=== PATIENT | female | born 1995 | race Caucasian/White ===

== ENCOUNTER 2022-11-11 08:00 | Outpatient (CLI) | payer OTHER ==
[2022-11-11 15:51] LABS: BILIRUBIN,URINE NEGATIVE (NEGATIVE); GLUCOSE, URINE (UA) NEGATIVE (NEGATIVE); KETONES,URINE (UA) NEGATIVE (NEGATIVE); LEUKOCYTE ESTERASE, URINE TRACE (NEGATIVE); NITRITE,URINE NEGATIVE (NEGATIVE); OCCULT BLOOD,URINE SMALL (NEGATIVE); PH,URINE 5.5 PH (5.0-7.5); PROTEIN,URINE NEGATIVE (NEGATIVE); UROBILINOGEN,URINE 0.2 (NORMAL) E.U./dL (NORMAL)
[2022-11-11 16:11] LABS: BACTERIA,URINE Rare /HPF (None Seen); CLARITY,URINE CLEAR (CLEAR); RBC,URINE 0-5 /HPF (0-5); SQUAMOUS EPITHELIAL CELL,UR MOD Squamous (<= Few)
== END 2022-11-11 23:59 | disposition home or self-care (01) ==
LOC: LAB.WC 08:00
PROVIDERS: ATTEND Nurse Practitioner
DX: Z34.00 Encounter for supervision of normal first pregnancy, unspecified trimester (principal)
CPT/HCPCS: 81001; 87086

== ENCOUNTER 2022-12-02 08:00 | Outpatient (CLI) | payer BC, OTHER ==
[2022-12-03 21:12] LABS: CHLAMYDIA TRACHOMATIS DNA NEGATIVE (NEGATIVE); NEISSERIA GONORRHOEAE DNA NEGATIVE (NEGATIVE); TRICHOMONAS VAGINALIS DNA NEGATIVE (NEGATIVE)
== END 2022-12-02 23:59 | disposition home or self-care (01) ==
LOC: LAB.WC 08:00
PROVIDERS: ATTEND Nurse Practitioner
DX: Z11.3 Encounter for screening for infections with a predominantly sexual mode of transmission (principal)
CPT/HCPCS: 87491; 87591; 87661

== ENCOUNTER 2022-12-02 12:45 | Outpatient (CLI) | payer OTHER ==
--- NOTE | 2022-12-02 15:49 | Ultrasound Report ---
PROCEDURE: OB First Trimester INDICATIONS: POSITIVE TEST OUTSIDE/PRIOR DATING DATA: Last menstrual period (LMP): 09/10/2022. LMP-based estimated date of delivery (MAGGIE): 06/27/2023. First dating scan (date and location): 11/24/2022. Estimated date of delivery (MAGGIE) from first dating scan: 06/28/2023. TECHNIQUE: Real-time scanning was performed of the fetus and maternal pelvic organs, with image documentation. COMPARISON: None FINDINGS: Intrauterine gestational sac present. Embryo: [place]-rump length measures 3.45 cm corresponding to a 10 week 2 day gestation. The yolk sac and unfused amnion are visible. Heart rate: 169 bpm. Other: No perigestational fluid collection. Measurement variability in dating: +/- 4 weeks by LMP, +/- 7 days by mean sac diameter (use before 6 weeks gestation if crown-rump length not able to be measured), +/- 5 days by crown-rump length (6-12 weeks gestation). Maternal organs: The uterus is anteverted and anteflexed. The cervix is closed. Ovaries are normal bi laterally. IMPRESSION: 1. Single living intrauterine with a gestational age by crown-rump length of 10 weeks 2 day s and sonographic MAGGIE of 06/28/2023, in good agreement with clinical dates. Reviewed by: Izabella Lees MD on 12/02/2022 3:47 PM PDT Approved by: Izabella Lees MD on 12/02/2022 3:47 PM PDT Station ID: [id number]
== END 2022-12-02 12:46 | disposition home or self-care (01) ==
LOC: DI 12:45
PROVIDERS: ATTEND Nurse Practitioner
DX: Z34.01 Encounter for supervision of normal first pregnancy, first trimester (principal); Z36.89 Encounter for other specified antenatal screening
CPT/HCPCS: 36415; 81001; 85025; 86592; 86762; 86787; 86803; 86850; 86900; 86901; 87086; 87340; 87389

== ENCOUNTER 2022-12-02 13:41 | Outpatient (CLI) | payer OTHER ==
[2022-12-02 14:09] LABS: BASOPHILS # (AUTO) 0.1 10^3/uL (0.0-0.1); BASOPHILS % (AUTO) 0.7 %; EOSINOPHILS # (AUTO) 0.2 10^3/uL (0.0-0.7); EOSINOPHILS % (AUTO) 2.2 %; HCT - HEMATOCRIT 37.2 % (37.0-47.0); LYMPHOCYTES % (AUTO) 20.3 %; MEAN CORPUSCULAR HGB CONC 34.9 g/dL (32.0-36.0); MEAN CORPUSCULAR VOLUME 88.6 fL (81.0-99.0); MEAN PLATELET VOLUME 9.4 fL (7.9-10.8); MONOCYTES # (AUTO) 0.5 10^3/uL (0.0-1.0); MONOCYTES % (AUTO) 5.5 %; NEUTROPHILS # (AUTO) 6.9 10^3/uL (1.5-6.6); NEUTROPHILS % (AUTO) 71.1 %; PLT - PLATELET COUNT 263 10^3/uL (130-450); RED CELL DISTRIBUTION WIDTH 12.1 % (12.0-15.0); WHITE BLOOD COUNT 9.7 x10^3/uL (4.8-10.8)
[2022-12-03 02:07] LABS: HBsAG SCREEN Negative (Negative)
[2022-12-03 04:09] LABS: HCV AB Non Reactive (Non Reactive); HIV SCREEN 4TH GENERATION Non Reactive (Non Reactive)
[2022-12-03 05:12] LABS: RPR Non Reactive (Non Reactive)
[2022-12-03 10:09] LABS: VARICELLA-ZOSTER AB IGG >4000 index (Immune >165)
== END 2022-12-02 13:42 | disposition home or self-care (01) ==
LOC: LAB 13:41
PROVIDERS: ATTEND Nurse Practitioner
DX: Z34.00 Encounter for supervision of normal first pregnancy, unspecified trimester (principal); Z36.89 Encounter for other specified antenatal screening
CPT/HCPCS: 36415; 81001; 85025; 86592; 86762; 86787; 86803; 86850; 86900; 86901; 87086; 87340; 87389

== ENCOUNTER 2023-02-10 08:01 | Outpatient (CLI) | payer BC, OTHER ==
--- NOTE | 2023-02-10 12:47 | Ultrasound Report ---
PROCEDURE: OB Detailed Eval INDICATIONS: SUPERVISION OF OUTSIDE/PRIOR DATING DATA: Last menstrual period (LMP): 09/20/2022. LMP-based estimated date of delivery (MAGGIE): 06/27/2023. First dating scan (date and location): 12/02/2022. Estimated date of delivery (MAGGIE) from first dating scan: 06/28/2023. The below data below was generated using the ultrasound MAGGIE of 06/28/2023 TECHNIQUE: Real-time scanning was performed of the fetus, with image documentation and biometric measurements. Endovaginal scanning: Not performed. COMPARISON: OB ultrasound 12/02/2022. FINDINGS: General: A single living intrauterine gestation is present. Presentation: Variable Placenta: Placental position is anterior, without previa. Amniotic fluid index: 12.8 cm, within normal limits for gestational age. Largest pocket 3.9 cm. heart rate: 162 beats per minute. Maternal cervical canal: 4 cm long; normal length is 2.5 cm or more. biometrics: Biparietal diameter: 4.8 cm, 20 weeks 3 days Head circumference: 17.8 cm, 20 weeks 2 days Abdominal circumference: 15.1 cm, 20 weeks 2 days Femur length: 3.2 cm, 20 weeks 1 day Estimated gestational age from initial scan: 20 weeks 3 days Composite gestational age from present scan: 20 weeks 2 days Estimated weight and percentile: 340 g, 34th percentile Measurement variability in biometric dating: +/- 10 days from 12-20 weeks gestation, +/- 2 weeks from 20-30 weeks gestation, +/- 3 weeks at 30 weeks gestation or later. Anatomic survey: Neuro: Ventricles are normal at less than 10 mm. Cisterna magna is normal at 3-11 mm. Cerebellum i s normal in size and morphology. Nuchal skin fold: Nuchal fold is estimated at 6.3 mm. Normal at less than 6 mm between 14 and 20 wee ks gestational age. Face: Nose and lips, facial profile are normal. Spine: No evidence for spina bifida. Heart: 4-chambered heart is present, with normal ventricular outflow tracts. Diaphragm: Diaphragm is intact. Stomach: Left-sided stomach is present. Kidneys: No hydronephrosis. Normal is less than 5 mm in 2nd trimester, less than 7 mm in 3rd trimester. Cord: 3 vessel cord has orthotopic insertion. Bladder: Normal in size. Extremities: All 4 extremities are visualized. IMPRESSION: 1. Ya living intrauterine at 20 weeks 2 days based on today's ultrasound. This is co ncordant with the first trimester ultrasound. Fetus is in the 34th percentile for weight. 2. Normal placenta and amniotic fluid. 3. Nuchal fold is at the upper limits of normal. Otherwise normal anatomic survey. Reviewed by: Negro Campbell MD on 02/10/2023 12:46 PM PST Approved by: Negro Campbell MD on 02/10/2023 12:46 PM PST Station ID: [id number]
== END 2023-02-10 08:02 | disposition home or self-care (01) ==
LOC: DI 08:01
PROVIDERS: ATTEND Nurse Practitioner
DX: Z34.02 Encounter for supervision of normal first pregnancy, second trimester (principal); Z36.8A Encounter for antenatal screening for other genetic defects

== ENCOUNTER 2023-04-03 08:50 | Outpatient (CLI) | payer BC, OTHER ==
[2023-04-03 10:12] LABS: HCT - HEMATOCRIT 36.7 % (37.0-47.0); HGB - HEMOGLOBIN 12.4 g/dL (12.0-16.0); MEAN CORPUSCULAR HEMOGLOBIN 32.5 pg (27.0-31.0); MEAN CORPUSCULAR HGB CONC 33.8 g/dL (32.0-36.0); MEAN CORPUSCULAR VOLUME 96.1 fL (81.0-99.0); MEAN PLATELET VOLUME 9.2 fL (7.9-10.8); RED BLOOD COUNT 3.82 10^6/uL (4.20-5.40); RED CELL DISTRIBUTION WIDTH 12.7 % (12.0-15.0); WHITE BLOOD COUNT 8.9 x10^3/uL (4.8-10.8)
== END 2023-04-03 08:51 | disposition home or self-care (01) ==
LOC: LAB 08:50
PROVIDERS: ATTEND Nurse Practitioner
DX: Z34.00 Encounter for supervision of normal first pregnancy, unspecified trimester (principal); Z36.8A Encounter for antenatal screening for other genetic defects
CPT/HCPCS: 36415; 82950; 85027; 86850

== ENCOUNTER 2023-05-07 20:12 | Outpatient (CLI) | payer BC, OTHER ==
--- NOTE | 2023-05-08 15:46 | Ultrasound Report ---
PROCEDURE: OB Follow up INDICATIONS: UTERINE SIZE DATE DISCREPENCY OUTSIDE/PRIOR DATING DATA: Last menstrual period (LMP): 09/20/2022. LMP-based estimated date of delivery (MAGGIE): 06/27/2023. First dating scan (date and location): 11/24/2022. Estimated date of delivery (MAGGIE) from first dating scan: 06/28/2023. The below data below was generated using the clinical MAGGIE of 06/27/2023 TECHNIQUE: Real-time scanning was performed of the fetus, with image documentation and biometric measurements. COMPARISON: OB ultrasound 02/10/2023 FINDINGS: General: A single living intrauterine gestation is present. Presentation: Vertex Placenta: Placental position is anterior, without previa. Amniotic fluid index: 15.7 cm, within normal limits for gestational age. heart rate: 132 beats per minute. Maternal cervical canal: 3.7 cm long; normal length is 2.5 cm or more. biometrics: Biparietal diameter: 8.4 cm 34 weeks 0 days to 79th percentile Head circumference: 32.0 cm 36 weeks 1 day 92nd percentile Abdominal circumference: 31.4 cm 35 weeks 2 days 98% Femur length: 6.4 cm 33 weeks 0 days 45th percentile Estimated gestational age from initial scan: 32 weeks 5 days Composite gestational age from present scan: 34 weeks 4 days Estimated weight and percentile: 2473 g 92nd percentile Measurement variability in biometric dating: +/- 10 days from 12-20 weeks gestation, +/- 2 weeks from 20-30 weeks gestation, +/- 3 weeks at 30 weeks gestation or more. Other: Not applicable. IMPRESSION: Single live intrauterine with appropriate interval growth. weight is at the 92nd percentile. Reviewed by: Sheila Radford MD on 05/08/2023 3:45 PM PST Approved by: Sheila Radford MD on 05/08/2023 3:45 PM PST Station ID: [id number]
== END 2023-05-07 20:13 | disposition home or self-care (01) ==
LOC: DI 20:12
PROVIDERS: ATTEND Nurse Practitioner
DX: O26.843 Uterine size-date discrepancy, third trimester (principal); Z3A.34 34 weeks gestation of pregnancy

== ENCOUNTER 2023-05-20 11:47 | Outpatient (CLI) | payer BC, OTHER ==
--- NOTE | 2023-05-20 16:34 | Ultrasound Report ---
PROCEDURE: OB Follow up INDICATIONS: UTERINE SIZE DATE DISCREPENCY OUTSIDE/PRIOR DATING DATA: Last menstrual period (LMP): 09/20/2022. LMP-based estimated date of delivery (MAGGIE): 06/27/2023. First dating scan (date and location): 12/02/2022. Estimated date of delivery (MAGGIE) from first dating scan: 06/28/2023. The below data below was generated using the clinical MAGGIE of 06/27/2023 TECHNIQUE: Real-time scanning was performed of the fetus, with image documentation and biometric measurements. Endovaginal scanning: Not performed. COMPARISON: OB ultrasound 05/07/2023 FINDINGS: General: A single living intrauterine gestation is present. Presentation: Vertex Placenta: Placental position is anterior, without previa. Amniotic fluid index: 18.7 cm, within normal limits for gestational age. heart rate: 164 beats per minute. Maternal cervical canal: 3.9 cm long; normal length is 2.5 cm or more. biometrics: Biparietal diameter: 8.8 cm, 33 weeks 5 days, 81st percentile Head circumference: 33.0 cm, 37 weeks 4 days, 86th percentile Abdominal circumference: 34.0 cm, 37 weeks 6 days, greater than 99th percentile Femur length: 6.8 cm, 34 weeks 6 days, 48th percentile Estimated gestational age from initial scan: 34 weeks 4 days Composite gestational age from present scan: 36 weeks 4 days Estimated weight and percentile: 3053 g, 96th percentile Measurement variability in biometric dating: +/- 10 days from 12-20 weeks gestation, +/- 2 weeks from 20-30 weeks gestation, +/- 3 weeks at 30 weeks gestation or more. Other: Not applicable. IMPRESSION: 1.Single live intrauterine . 2.Estimated weight is at the 96th percentile for gestational age. 3.Amniotic fluid index is within normal limits at 18.7 cm. Reviewed by: Haresh Olivia MD on 05/20/2023 4:32 PM PST Approved by: Haresh Olivia MD on 05/20/2023 4:32 PM PST Station ID: [id number]
== END 2023-05-20 11:48 | disposition home or self-care (01) ==
LOC: DI 11:47
PROVIDERS: ATTEND Nurse Practitioner
DX: O26.843 Uterine size-date discrepancy, third trimester (principal); Z3A.36 36 weeks gestation of pregnancy

== ENCOUNTER 2023-05-23 08:00 | Outpatient (CLI) | payer BC, OTHER ==
[2023-05-23 17:17] LABS: CREATININE,URINE 60.4 mg/dL; PROTEIN/CREATININE RATIO,URINE 0.2 (<=0.2)
== END 2023-05-23 23:59 | disposition home or self-care (01) ==
LOC: LAB.WC 08:00
PROVIDERS: ATTEND Nurse Practitioner
DX: R60.0 Localized edema (principal)
CPT/HCPCS: 82570; 84156

== ENCOUNTER 2023-05-30 08:00 | Outpatient (CLI) | payer BC, OTHER | END 2023-05-30 23:59 | disposition home or self-care (01) | LOC: LAB.WC 08:00 | PROVIDERS: ATTEND Nurse Practitioner | DX: Z36.85 Encounter for antenatal screening for Streptococcus B (principal) | CPT/HCPCS: 87797 ==

== ENCOUNTER 2023-06-19 10:47 | Outpatient (CLI) | payer BC, OTHER ==
--- NOTE | 2023-06-19 16:33 | Ultrasound Report ---
PROCEDURE: OB Follow up INDICATIONS: UTERINE SIZE DATE DISCREPENCY OUTSIDE/PRIOR DATING DATA: Last menstrual period (LMP): 09/20/2022. LMP-based estimated date of delivery (MAGGIE): 06/27/2023. First dating scan (date and location): 12/02/2022. Estimated date of delivery (MAGGIE) from first dating scan: 06/28/2023. The below data below was generated using the clinical MAGGIE of 06/27/2023 TECHNIQUE: Real-time scanning was performed of the fetus, with image documentation and biometric measurements. Endovaginal scanning: Not performed. COMPARISON: 02/10/2023 FINDINGS: General: A single living intrauterine gestation is present. Presentation: Vertex Placenta: Placental position is anterior, without previa. Amniotic fluid index: 20.3 cm, within normal limits for gestational age. Largest pocket measured 6. 2 cm heart rate: 144 beats per minute. Maternal cervical canal: 3.3 cm long; normal length is 2.5 cm or more. biometrics: Biparietal diameter: 9.57 cm, 39 weeks and 1 day (84th percentile) Head circumference: 34.67 cm, 40 weeks and 1 day (68.5th percentile) Abdominal circumference: 37.65 cm, 41 weeks and 4 days (greater than the 99th percentile) Femur length: 7.31 cm, 37 weeks and 3 days (21st percentile) Estimated gestational age from initial scan: 38 weeks and 6 days Composite gestational age from present scan: 39 weeks and 4 days Estimated weight and percentile: 4407.8 g correlating with the 93rd percentile Measurement variability in biometric dating: +/- 10 days from 12-20 weeks gestation, +/- 2 weeks from 20-30 weeks gestation, +/- 3 weeks at 30 weeks gestation or more. Other: Not applicable. IMPRESSION: Single living intrauterine gestation with estimated sonographic gestational age of approximately 39 w eeks and 4 days. Expected interval growth has occurred. Estimated weight of 4407 g which correl ates with the 93rd percentile. Four-quadrant JAMIL measuring 20.3 cm (89th percentile) Reviewed by: Ganga Joe MD on 06/19/2023 3:32 PM BRYCE Approved by: Ganga Joe MD on 06/19/2023 3:32 PM BRYCE Station ID: [id number]
== END 2023-06-19 10:48 | disposition home or self-care (01) ==
LOC: DI 10:47
PROVIDERS: ATTEND Nurse Practitioner
DX: O26.843 Uterine size-date discrepancy, third trimester (principal); Z3A.39 39 weeks gestation of pregnancy

== ENCOUNTER 2023-06-20 08:00 | Outpatient (CLI) | payer BC, OTHER ==
[2023-06-20 13:51] LABS: CREATININE,URINE 44.3 mg/dL; PROTEIN/CREATININE RATIO,URINE 0.2 (<=0.2)
== END 2023-06-20 23:59 | disposition home or self-care (01) ==
LOC: LAB.WC 08:00
PROVIDERS: ATTEND Nurse Practitioner
DX: R03.0 Elevated blood-pressure reading, without diagnosis of hypertension (principal)
CPT/HCPCS: 82570; 84156

== ENCOUNTER 2023-06-23 14:10 | Inpatient (IN) | payer BC, OTHER ==
[2023-06-23] MEDS ORDERED: ONDANSETRON ODT 4 MG TABLET TL PRN (15:57)
[2023-06-23] MEDS ORDERED: miSOPROStoL 200 MCG TABLET BC PRN (15:57)
[2023-06-23] MEDS ORDERED: LABETALOL 20 MG/4 ML SYRINGE IVP PRN ×3 (15:57)
[2023-06-23] MEDS ORDERED: OXYTOCIN/SODIUM CHLORIDE 500 ML IV PRN (15:57)
[2023-06-23] MEDS ORDERED: NIFEdipine 10 MG CAPSULE PO PRN (15:57)
[2023-06-23] MEDS ORDERED: TRANEXAMIC ACID IN NACL 1,000 MG/100 ML BAG IV PRN (15:57)
[2023-06-23] MEDS ORDERED: SODIUM CHLORIDE FLUSH 0.9% 10 ML SYRINGE IVP PRN (15:57)
[2023-06-23] MEDS ORDERED: miSOPROStoL 200 MCG TABLET PR PRN (15:57)
[2023-06-23] MEDS ORDERED: hydrALAZINE INJ 20 MG/ML VIAL IVP PRN ×2 (15:57)
[2023-06-23] MEDS ORDERED: OXYTOCIN 10 UNIT/ML VIAL IM PRN (15:57)
[2023-06-23] MEDS ORDERED: TERBUTALINE 1 MG/ML VIAL SUBQ PRN (15:57)
[2023-06-23] MEDS ORDERED: METHYLERGONOVINE 0.2 MG/ML VIAL IM PRN (15:57)
--- NOTE | 2023-06-23 15:57 | HISTORY & PHYSICAL EXAMINATION ---
Admit History - : 1 Parity: 0 Smoking Status: Never smoker - Mother's Labs Mother's Blood Type: positive: O Mother's RH: positive: Positive GBS: positive: Group B Step Negative Rubella Status: positive: Equivocal - Other Maternal History Other Maternal History: HPI: Patient is a 27-year-old G1, P0 at 39 weeks 3 days gestation presenting for induction of labor at term she has good movement. Denies loss of fluid. No PAUL/BV or RUQP. No vaginal bleeding. Denies nausea and vomiting. Denies urinary urgency or dysuria. All other symptoms reviewed and were negative except per HPI. Course LMP: 09/10/22 MAGGIE by LMP: 06/27/23 11/24/22 /10+2 /C/W dates Final MAGGIE:09/11/2023 FHT: 169 Pre- Weight: 120 BMI: 23.59 Blood type: O+ Antibody: negative CBC: PLT 263 HCT 37.2 HGB 13.0 RUB: equivocal VZV: immune HBsAg: negative HepC: negative RPR/AB-EIA: N-R HIV: N-R PAP: 2021 normal GC/CT: 12/02 negative HSV: denies self/partner Genetic testin12/03/2022 MaterniT- screen Negative Covid: x2/[id number] Flu: given 01/03 RSV: 05/09/2023 FAS WNL EFW 34% 3 VC anterior placenta JAMIL normal 50gm OGCT: 120 3HR GTT: TDAP: 04/11/2023 Breast Pump: 04/11/2023 Antibody screen: 3rd trimester PLT 209; HCT 36.7 HGB 12.4 3rd trimester HIV GBS: Negative EFW: 4407 g, 93rd percentile PMH Depression/anxiety Rubella nonimmune PSH Unremarkable OB History G1, P0 SH Former smoker. No alcohol or drugs. Family History Father: Heart disease Mother: Stroke/CVA, aneurysm Paternal grandmother: Breast cancer Aunt: Breast cancer Allergies No known drug allergies Medications vitamins Sertraline 100 mg daily Physical exam: General: Alert, oriented, no acute distress Head: Normal cephalic atraumatic Eyes: PERRLA, extraocular motions intact. Respiratory: Normal rate of respiration. No accessory muscle use, normal respiratory effort. Cardiovascular: Regular rate and rhythm Abdomen: Gravid, nontender, nondistended Extremities: Normal range of motion Neuro: Oriented x3. Normal movements Psych: Appropriate mood and affect. Normal judgment and insight SVE: 1/40/-3 FHT: 145 bpm baseline, moderate variability, accelerations present, no decelerations [place]: Irregular Assessment and plan 1. Induction of labor -Plan for cervical ripening, will admit if successful. -Misoprostol 25 mcg per vagina every 4 hours -Epidural at patient's request -Anticipate AROM, anticipate 2. 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 4. Rubella nonimmune -Rubella - HPI Current EDU 06/27/23 Gestation 39 Weeks and 3 Days 1 Vital Signs Temperature 97.8 F 06/23/23 14:30 Heart Rate 81 06/23/23 14:30 Respiratory Rate 16 06/23/23 14:30 Blood Pressure 144/78 H 06/23/23 14:30 Temperature 97.8 F 06/23/23 14:30 Heart Rate 81 06/23/23 14:30 Respiratory Rate 16 06/23/23 14:30 Blood Pressure 144/78 H 06/23/23 14:30 O2 Saturation If not protocol: Oxygen Flow, liters/minute Meds/Allgy - Home Medications Home Medications: Ambulatory Orders Medication Instructions Recorded Confirmed Pnv No.95/Ferrous Fum/Folic AC 1 tab ORAL DAILY 06/23/23 06/23/23 [ Tablet] Sertraline HCl [Zoloft] 50 mg PO ONCE 06/23/23 06/23/23 - Allergies Allergies/Adverse Reactions: Allergies Allergy/AdvReac Type Severity Reaction Status Date / Time No Known Drug Allergies Allergy Verified 06/23/23 15:30 Physical - Abdominal Exam Vital Signs: Temp Pulse Resp BP Pulse Ox O2 Flow Rate 97.8 F 81 16 144/78 H 06/23/23 14:30 06/23/23 14:30 06/23/23 14:30 06/23/23 14:30 Plan for Labor - Plan For Labor I expect patient to be DC'd or transferred within 96 hours.: Yes
[2023-06-23] MEDS ORDERED: SODIUM CHLORIDE FLUSH 0.9% 10 ML SYRINGE IVP SCH (16:00)
[2023-06-23] MEDS ORDERED: SERTRALINE 50 MG TABLET PO ONE (16:00)
[2023-06-23] MEDS: miSOPROStoL 100 MCG TABLET VG SCH (16:28)
[2023-06-23 17:20] LABS: BASOPHILS % (AUTO) 0.3 %; EOSINOPHILS # (AUTO) 0.1 10^3/uL (0.0-0.7); EOSINOPHILS % (AUTO) 0.8 %; HCT - HEMATOCRIT 36.2 % (37.0-47.0); LYMPHOCYTES # (AUTO) 1.7 10^3/uL (1.5-3.5); LYMPHOCYTES % (AUTO) 17.4 %; MEAN CORPUSCULAR HEMOGLOBIN 29.8 pg (27.0-31.0); MEAN CORPUSCULAR HGB CONC 33.1 g/dL (32.0-36.0); MEAN CORPUSCULAR VOLUME 89.8 fL (81.0-99.0); MEAN PLATELET VOLUME 10.8 fL (7.9-10.8); MONOCYTES # (AUTO) 0.7 10^3/uL (0.0-1.0); NEUTROPHILS # (AUTO) 7.4 10^3/uL (1.5-6.6); PLT - PLATELET COUNT 223 10^3/uL (130-450); RED BLOOD COUNT 4.03 10^6/uL (4.20-5.40); RED CELL DISTRIBUTION WIDTH 13.6 % (12.0-15.0); WHITE BLOOD COUNT 9.9 x10^3/uL (4.8-10.8)
--- NOTE | 2023-06-23 20:36 | PROVIDER PROGRESS NOTE ---
Labor Progress Note - Uterine Monitoring Uterine Monitoring Mode: positive: External toco Contraction Frequency (min/apart): 2-5 - Monitoring Monitor Mode: positive: External ultrasound Heart Rate Baseline: 145 Heart Rate Variability: positive: Moderate (6-25 bmp) Accelerations: positive: Present, 10x10 (=/32 wks) Decelerations: positive: None Strip Review: positive: Category I - Labor Progress Note Labor Progress Note/Additional Text: Tolerating misoprostol well. Khanh but not strongly. Fetus tolerating well. Patient comfortable. Will check after 3rd dose and reassess.
[2023-06-23] MEDS: valACYclovir 500 MG TABLET PO SCH (21:01)
[2023-06-23] MEDS: SERTRALINE 50 MG TABLET PO ONE (21:01)
[2023-06-24] MEDS ORDERED: NIFEdipine 10 MG CAPSULE PO PRN (03:07)
[2023-06-24] MEDS: OXYTOCIN/SODIUM CHLORIDE 500 ML IV SCH (03:34)
[2023-06-24] MEDS: LACTATED RINGERS 1,000 ML IV SCH (03:35)
--- NOTE | 2023-06-24 07:55 | PROVIDER PROGRESS NOTE ---
Labor Progress Note - Uterine Monitoring Uterine Monitoring Mode: positive: External toco Contraction Frequency (min/apart): 1-3 - Monitoring Monitor Mode: positive: External ultrasound Heart Rate Baseline: 135 Heart Rate Variability: positive: Moderate (6-25 bmp) Accelerations: positive: Present, 15x15 Decelerations: positive: None Strip Review: positive: Category I - Vaginal Exam Dilation (in cm): 3 Effacement (%): 50 Station: -3 - Labor Progress Note Labor Progress Note/Additional Text: Patient was very sensitive to misoprostol and we were unable to administer more than one dose due to frequency of uterine contractions. Held overnight dose and gave fluid bolus. Eventually spaced out. Was /-3 so started oxytocin. Remains unchanged at this time, but head is not well engaged. Will continue oxytocin at this time.
--- NOTE | 2023-06-24 09:04 | PHARMACY PROGRESS NOTE ---
- Best Possible Medication History Admit Date and Time: 06/23/23 1557 Processed by: Nursing Medications reviewed in ED?: No Medication History completed: Yes Patient Interview: Completed Secondary Source(s): Insurance records As the person ultimately responsible for medication therapy, providers are able to order a medication from an existing home medication list in [facility] via the "Reconcile Routine" prior to Confirmation of that medication by integrated logistics support manager. Such practice is discouraged except when the physician, in their clinical judgment, deems that a medical need exists for a medication without regard to previous use.
[2023-06-24] MEDS: fentaNYL 100 MCG/2 ML VIAL IVP PRN (14:21)
[2023-06-24] MEDS ORDERED: LACTATED RINGERS 500 ML IV ONE (15:38)
[2023-06-24] MEDS ORDERED: NALOXONE 0.4 MG/ML VIAL IVP PRN (15:38)
[2023-06-24] MEDS ORDERED: diphenhydrAMINE INJ 50 MG/ML VIAL IVP PRN (15:38)
[2023-06-24] MEDS ORDERED: NALBUPHINE 10 MG/ML AMP IVP PRN (15:38)
[2023-06-24] MEDS ORDERED: ePHEDrine 50 MG/ML VIAL IVP PRN (15:38)
[2023-06-24] MEDS ORDERED: METOCLOPRAMIDE 10 MG/2 ML VIAL IVP PRN (15:38)
[2023-06-24] MEDS ORDERED: ONDANSETRON 4 MG/2 ML VIAL IVP PRN (15:38)
--- NOTE | 2023-06-24 15:38 | ANESTHESIA ---
Pre-Anesthesia VS, & Labs - Diagnosis term labor, IUP, labor pain - Procedure epidural for Vital Signs: Temp Pulse Resp BP Pulse Ox O2 Flow Rate 36.6 C 81 16 144/78 H 06/23/23 14:30 06/23/23 14:30 06/23/23 14:30 06/23/23 14:30 Height: 5 ft 1 in Weight (kg): 74.389 kg Body Mass Index: 30.9 BMI Classification: Obese - NPO Last Fluid Intake: t/o day Last Food Intake: breakfast - Is Patient ?: Yes - Lab Results Current Lab Results: Laboratory Tests 06/23/23 16:45: WBC 9.9, RBC 4.03 L, Hgb 12.0, Hct 36.2 L, MCV 89.8, MCH 29.8, MCHC 33.1, RDW 13.6, Plt Count 223, MPV 10.8, Neut # (Auto) 7.4 H, Lymph # (Auto) 1.7, [place] # (Auto) 0.7, Eos # (Auto) 0.1, Baso # (Auto) 0.0, Absolute Nucleated RBC 0.00, Nucleated RBC % 0.0 06/23/23 16:45: Blood Type O POSITIVE, Antibody Screen NEGATIVE Lab results reviewed: Yes Fish Bones: 06/23/23 16:45 Home Medications and Allergies Home Medications: Ambulatory Orders Pnv No.95/Ferrous Fum/Folic AC [ Tablet] 1 tab ORAL DAILY 06/23/23 Sertraline HCl [Zoloft] 50 mg PO ONCE 06/23/23 Active Medications Acetaminophen (Acetaminophen 500 Mg Tablet) 1,000 mg PO Q6HR PRN PRN Reason: Pain or Fever > 38C (100.4F) Fentanyl (Fentanyl 100 Mcg/2 Ml Vial) 50 mcg IVP Q1H PRN PRN Reason: Severe Pain (score 7-10) Last Admin: 06/24/23 14:21 Dose: 25 mcg Hydralazine HCl (Hydralazine Inj 20 Mg/Ml Vial) 10 mg IVP .ONCE PRN; Protocol PRN Reason: SBP> or= 160 OR DBP> or= 110 Hydralazine HCl (Hydralazine Inj 20 Mg/Ml Vial) 5 - 10 mg IVP Q20M PRN; Protocol PRN Reason: SBP> or= 160 OR DBP> or= 110 Oxytocin/Sodium Chloride (Pitocin/Sodium Chloride) 500 mls @ 999 mls/hr IV PRN PRN; Protocol PRN Reason: POST- HEMORR PREVENTION Tranexamic Acid (Tranexamic 1,000 Mg/100ml-Nacl) 1,000 mg in 100 mls @ 600 mls/hr IV Q30M PRN PRN Reason: EBL >1200mL and within 3hr Lactated Ringer's (Lr) 1,000 mls @ 125 mls/hr IV .Q8H SELENA Last Infusion: 06/24/23 11:00 Dose: 50 mls/hr Lactated Ringer's (Lr) 1,000 mls @ 999 mls/hr IV PRN PRN PRN Reason: PER PHYSICIAN ORDER Oxytocin/Sodium Chloride (Pitocin/Sodium Chloride) 500 mls @ 2 mls/hr IV TITR SELENA; Protocol Last Titration: 06/24/23 06:45 Dose: 8 milliunit/min, 8 mls/hr Labetalol HCl (Labetalol 20 Mg/4 Ml Syringe) 20 mg IVP .ONCE PRN; Protocol PRN Reason: SBP> or= 160 OR DBP> or= 110 Labetalol HCl (Labetalol 20 Mg/4 Ml Syringe) 20 - 80 mg IVP Q10M PRN; Protocol PRN Reason: SBP> or= 160 OR DBP> or= 110 Labetalol HCl (Labetalol 20 Mg/4 Ml Syringe) 20 - 40 mg IVP Q10M PRN; Protocol PRN Reason: SBP> or= 160 OR DBP> or= 110 Lidocaine HCl (Lidocaine 1% 20 Ml Mdv) 20 ml ID .ONCE PRN PRN Reason: PERINEAL REPAIR Stop: 06/26/23 15:57 Methylergonovine Maleate (Methylergonovine 0.2 Mg/Ml Vial) 0.2 mg IM .ONCE PRN PRN Reason: Hemorrhage Misoprostol (Misoprostol 200 Mcg Tablet) 600 mcg BC .ONCE PRN PRN Reason: Hemorrhage Misoprostol (Misoprostol 200 Mcg Tablet) 800 mcg FL .ONCE PRN PRN Reason: Hemorrhage Nifedipine (Nifedipine 10 Mg Capsule) 10 - 20 mg PO Q20M PRN; Protocol PRN Reason: SBP> or= 160 OR DBP> or= 110 Nifedipine (Nifedipine 10 Mg Capsule) 10 mg PO ONCE PRN PRN Reason: Tachysytole Stop: 06/25/23 03:06 Ondansetron HCl (Ondansetron Odt 4 Mg Tablet) 4 mg TL Q6HR PRN PRN Reason: Nausea / Vomiting Oxytocin (Oxytocin 10 Unit/Ml Vial) 10 unit IM .ONCE PRN PRN Reason: Step One if no IV access. Multivit/Folic Acid/Iron ( Vitamin Tablet) 1 tab PO DAILY SELENA Sodium Chloride (Sodium Chloride Flush 0.9% 10 Ml Syringe) 10 ml IVP Q8H SELENA Sodium Chloride (Sodium Chloride Flush 0.9% 10 Ml Syringe) 10 ml IVP PRN PRN PRN Reason: NEEDED PER PROVIDER ORDERS Terbutaline Sulfate (Terbutaline 1 Mg/Ml Vial) 0.25 mg SUBQ .ONCE PRN PRN Reason: Tachystole Valacyclovir HCl (Valacyclovir 500 Mg Tablet) 500 mg PO HS [facility] Last Admin: 06/23/23 21:01 Dose: 500 mg Pnv No.95/Ferrous Fum/Folic AC [ Tablet] 1 tab ORAL DAILY 06/23/23 Sertraline HCl [Zoloft] 50 mg PO ONCE 06/23/23 Allergies/Adverse Reactions: Allergies Allergy/AdvReac Type Severity Reaction Status Date / Time No Known Drug Allergies Allergy Verified 06/23/23 15:30 Anes History & Medical History - Anesthetic History Anesthesia Complications: reports: No previous complications Family history of Anesthesia Complications: Denies Family history of Malignant Hyperthermia: Denies - Medical History Smoking Status: Never smoker - Obstetrical History : 1 Parity: 0 Exam General: Alert, Oriented x3, Cooperative Dental: WNL Neck Mobility: Normal Respiratory: No respiratory distress Cardiovascular: Regular rate Neurological: Normal speech Mental/Cognitive Status: Alert/Oriented X3, Normal for patient Cognitive Status: Within normal limits Plan Anesthesia Type: Epidural Consent for Procedure(s) Verified and Reviewed: Yes Code Status: Attempt Resuscitation ASA classification: 2-Mild systemic disease Is this case an emergency?: No
[2023-06-24] MEDS ORDERED: LIDOCAINE 2%-EPI 1:100000 20 ML MDV ONE (15:41)
[2023-06-24] MEDS: LACTATED RINGERS 1,000 ML IV PRN (16:15)
--- NOTE | 2023-06-24 19:30 | PROVIDER PROGRESS NOTE ---
Labor Progress Note - Uterine Monitoring Uterine Monitoring Mode: positive: External toco Contraction Frequency (min/apart): 3 Contraction Intensity: positive: Moderate Uterine Resting Tone: positive: Soft - Monitoring Monitor Mode: positive: External ultrasound Heart Rate Variability: positive: Moderate (6-25 bmp) Accelerations: positive: Present, 15x15 Decelerations: positive: None Strip Review: positive: Category I - Labor Progress Note Labor Progress Note/Additional Text: I saw patient at noon and she was doing great and then at 1530. at that time she was really struggling with her contractions but was in the tub and that felt better. She had just spoken to [facility] about epidural and was planning for when she got out of tub. We discussed that the long, painful induction process is hard to do without epidural. Pitocin is painful. it is a slow process. and the epidural is really helpful to get her some rest. She agrees and is willing to get now.
--- NOTE | 2023-06-24 20:42 | PROVIDER PROGRESS NOTE ---
Labor Progress Note - Uterine Monitoring Uterine Monitoring Mode: positive: IUPC (placed to better monitor contractions.) Contraction Frequency (min/apart): contractions 2.5 to 3 Contraction Intensity: positive: Moderate Uterine Resting Tone: positive: Soft - Monitoring Monitor Mode: positive: External ultrasound Heart Rate Variability: positive: Moderate (6-25 bmp) Accelerations: positive: Present, 15x15 Decelerations: positive: None Strip Review: positive: Category I - Vaginal Exam Dilation (in cm): 6 Effacement (%): 100 Station: -2 Cervical Position: Midposition - Labor Progress Note Labor Progress Note/Additional Text: slow progress, just getting into active labor. IUPC placed to better dose pitocin. baby is known to be quite large. no operative vaginal delivery. GBS negative. comfortable with epidural. FINDINGS: last uls on 06/19/23 General: A single living intrauterine gestation is present. Presentation: Vertex Placenta: Placental position is anterior, without previa. Amniotic fluid index: 20.3 cm, within normal limits for gestational age. Largest pocket measured 6.2 cm heart rate: 144 beats per minute. Maternal cervical canal: 3.3 cm long; biometrics: Biparietal dlameter: 9.57 cm, 39 weeks and 1 day (84th percentile) Head circumference: 34.67 cm, 40 weeks and 1 day (68.5th percentile) Abdominal circumference: 37.65 cm, 41 weeks and 4 days (greater than the 99th percentile) Femur length: 7.31 cm, 37 weeks and 3 days (21st percentile) Estimated gestational age from initial scan: 38 weeks and 6 days Composite gestational age from present scan: 39 weeks and 4 days
[2023-06-24] MEDS: SERTRALINE 50 MG TABLET PO SCH (21:17)
[2023-06-24] MEDS: PRENATAL VITAMIN TABLET PO SCH (21:17)
[2023-06-24] MEDS: ROPIVACAINE 0.2% 200 MG/100 ML BAG EP PRN (22:37)
[2023-06-24] MEDS: SODIUM CHLORIDE 0.9% 1,000 ML IY ONE (22:42)
[2023-06-24] MEDS: ACETAMINOPHEN 500 MG TABLET PO PRN (23:23)
--- NOTE | 2023-06-25 00:50 | PROVIDER PROGRESS NOTE ---
Labor Progress Note - Uterine Monitoring Uterine Monitoring Mode: positive: IUPC : 2-3.5 Contraction Intensity: positive: Moderate to strong Uterine Resting Tone: positive: Soft - Monitoring Monitor Mode: positive: External ultrasound Heart Rate Variability: positive: Moderate (6-25 bmp) Accelerations: positive: Present, 15x15, Present, 10x10 (=/32 wks) Decelerations: positive: Variable, Recurrent (>50% x20 min) Strip Review: positive: Category II - Vaginal Exam Dilation (in cm): 9 Station: 0 - Labor Progress Note Labor Progress Note/Additional Text: called by RN. patient complete. I came in to evaluate and she has cervix on the right 1/2. Pitocin was up to 14, now decrease to 12. patient having pain up in chest with contractions, seems increased pressure from amnioinfusion. not alot of fluid has come out. recommend turn to right with peanut ball. will see if baby will tolerate.
--- NOTE | 2023-06-25 01:30 | PROVIDER PROGRESS NOTE ---
Labor Progress Note - Monitoring Heart Rate Variability: positive: Moderate (6-25 bmp) Accelerations: positive: Present, 15x15 Decelerations: positive: Late (x 1for about a minute.), Variable - Labor Progress Note Labor Progress Note/Additional Text: still with a small amount of cervix. some big decels. pitocin down to 6. tried a push. comes to +2. will try again in 20 min or so.
--- NOTE | 2023-06-25 02:23 | PROVIDER PROGRESS NOTE ---
Labor Progress Note - Uterine Monitoring Uterine Monitoring Mode: positive: IUPC Contraction Intensity: positive: Moderate to strong Uterine Resting Tone: positive: Soft - Monitoring Monitor Mode: positive: External ultrasound Heart Rate Variability: positive: Moderate (6-25 bmp) Accelerations: positive: Present, 15x15 Decelerations: positive: Variable, Intermittent (<50% x20 min) - Vaginal Exam Dilation (in cm): still with a rim, won't go away with pushing. Station: 1 - Labor Progress Note Labor Progress Note/Additional Text: Unable to feel position. cervix not going away. pitocin to 10. will try turning her over and see if that helps rotate baby. FHT up to 180 then 170. mom's temp 37.4. her pulse is 83. seems just a prolonged acel but will keep watching mom's temp. rupture about 12 hours now.
[2023-06-25] MEDS ORDERED: AZITHROMYCIN INJ 500 MG in SODIUM CHLORIDE 0.9% 250 ML IV STA (02:59)
--- NOTE | 2023-06-25 03:02 | HISTORY & PHYSICAL EXAMINATION ---
HPI - Admitted From Admitted from: OB - History Obtained From Records Reviewed: RN notes reviewed - History of Present Illness HPI Comment/Other: patient has a rim of cervix since midnight. no change. adequate contractions with iupc. now and maternal tachcardia. tried to push and move cervix out of way with no success. tried hands and knees and cervix came down more, not less. then she was feeling more pressure after pitocin was turned off and no change. baby is -1 station now. Social & Family Hx - Social History Smoking Status: Never smoker Meds/Allgy - Home Medications Home Medications: Ambulatory Orders Medication Instructions Recorded Confirmed Pnv No.95/Ferrous Fum/Folic AC 1 tab ORAL DAILY 06/23/23 06/23/23 [ Tablet] Sertraline HCl [Zoloft] 50 mg PO ONCE 06/23/23 06/23/23 - Allergies Allergies/Adverse Reactions: Allergies Allergy/AdvReac Type Severity Reaction Status Date / Time No Known Drug Allergies Allergy Verified 06/23/23 15:30 Exam - Vital Signs Reviewed Vital Signs: Yes - Physical Exam General Appearance: positive: No acute distress Cardiovascular: positive: Tachycardia Abdomen: positive: Non-tender Extremities: positive: Non-tender Results - Lab Results Lab results reviewed: Yes Fish Bones: 06/23/23 16:45 Sepsis Event Note (H) - Evaluation Possible source of Sepsis: positive: Genitourinary - Sepsis Criteria Sepsis Criteria: Recorded Heart Rate greater than 90 bpm Impression/Plan - Problem List Problem List: arrest of dilation at 9 cm. and maternal tachcardia. will proceed with c section. procedure, risks and reasons discussed. team called in.
[2023-06-25] MEDS ORDERED: ceFAZolin (2G) 2 GM in SODIUM CHLORIDE 0.9% MINIBAG 100 ML IV ONE (03:03)
[2023-06-25] MEDS ORDERED: LIDOCAINE 2%-EPI 1:100000 20 ML MDV ONE (03:07)
[2023-06-25] MEDS ORDERED: SODIUM CHLORIDE 0.9% 10 ML VIAL IVP ONE ×2 (03:08→03:23)
[2023-06-25] MEDS ORDERED: ePHEDrine 50 MG/ML VIAL IVP ONE (03:08)
[2023-06-25] MEDS ORDERED: PHENYLEPHRINE HCL 0.5 MG/5 ML AMPULE ONE (03:09)
[2023-06-25] MEDS ORDERED: ACETAMINOPHEN 1,000 MG/100 ML 1,000 MG/100 ML BAG IV ONE (03:23)
[2023-06-25] MEDS ORDERED: OXYTOCIN 10 UNIT/ML VIAL ONE (03:23)
[2023-06-25] MEDS ORDERED: OXYTOCIN/SODIUM CHLORIDE 500 ML IV ONE (03:24)
[2023-06-25] MEDS: ceFAZolin (2G) 2 GM in SODIUM CHLORIDE 0.9% MINIBAG 100 ML IV ONE (03:25)
[2023-06-25] MEDS ORDERED: CARBOPROST TROMETHAMINE 250 MCG/ML VIAL IM ONE (03:44)
[2023-06-25] MEDS ORDERED: fentaNYL 100 MCG/2 ML VIAL ONE (04:09)
[2023-06-25] MEDS ORDERED: PROPOFOL 200 MG/20 ML VIAL IVP ONE (04:20)
[2023-06-25] MEDS ORDERED: LIDOCAINE-PF 2% 10 ML AMP SUBQ ONE (04:26)
[2023-06-25] MEDS ORDERED: ROPIVACAINE 0.5% PF 20 ML VIAL ONE (04:26)
[2023-06-25] MEDS: lidocaine 1% 20 ML MDV ID PRN (04:27)
[2023-06-25] MEDS ORDERED: HYDROmorphone 0.5 MG/0.5 ML SYRINGE IVP PRN (04:33)
[2023-06-25] MEDS ORDERED: NALOXONE 0.4 MG/ML VIAL IVP PRN (04:33)
[2023-06-25] MEDS ORDERED: MORPHINE 2 MG/ML CARPUJECT IVP PRN (04:33)
[2023-06-25] MEDS ORDERED: ATROPINE ABBOJECT 1 MG/10 ML SYRINGE IVP PRN (04:33)
[2023-06-25] MEDS ORDERED: fentaNYL 100 MCG/2 ML VIAL IVP PRN (04:33)
[2023-06-25] MEDS ORDERED: ONDANSETRON 4 MG/2 ML VIAL IVP PRN (04:33)
[2023-06-25] MEDS ORDERED: METOCLOPRAMIDE 10 MG/2 ML VIAL IVP PRN (04:33)
[2023-06-25] MEDS ORDERED: ePHEDrine 50 MG/ML VIAL IVP PRN (04:33)
[2023-06-25] MEDS ORDERED: LABETALOL 20 MG/4 ML SYRINGE IVP PRN ×3 (04:41)
[2023-06-25] MEDS ORDERED: hydrALAZINE INJ 20 MG/ML VIAL IVP PRN ×2 (04:41)
[2023-06-25] MEDS ORDERED: CALCIUM CARBONATE CHEW 500 MG TABLET PO PRN (04:41)
[2023-06-25] MEDS ORDERED: SIMETHICONE CHEW 80 MG TABLET PO PRN (04:41)
[2023-06-25] MEDS ORDERED: NIFEdipine 10 MG CAPSULE PO PRN (04:41)
--- NOTE | 2023-06-25 04:47 | OPERATIVE REPORT ---
Operative Report - General Admit Date: 06/24/23 Procedure Date: 06/25/23 Planned Procedure: primary low transverse c section Pre-Op Diagnosis: arrest of dilation at 9 cm Procedure Performed: same Post Op Diagnosis: same - Procedure Note Primary Surgeon: Saritha Jones MD Secondary Surgeon: SARMAD Moreno Anesthesia Technique: Epidural, Local Pathology: none IV Fluids (mL): 1,000 Estimated Blood Loss (mL): 500 Urine Output (mL): 200 - Other Other Information/Narrative: Indications for Procedure: Patient is a 27 year-old woman, at 39 weeks. presented for labor induction due to large baby. progressed to 9 cm but never got to complete over the next 3 hours with adequate contractions. Then developed maternal and tachycardia. Recommended c section and patient and partner agreed. Procedure Details The risks, benefits, complications, treatment options, and expected outcomes were discussed with the patient. The patient concurred with the proposed plan, giving informed consent. The patient was taken to the Operating Room. 2 grams of Cefazolin and 500 mg Azithryomycin were given. She had sequential compression devices on her lower extremities. Ritter catheter was placed previously. A Time Out was held and the above information confirmed. The patient was prepped in the usual sterile manner. Vaginal prep was done. Drapes were placed. Anesthesia was tested and found to be adequate. A Pfannenstiel incision was made and carried down through the subcutaneous tissue to the fascia. Fascial incision was made and extended transversely. The fascia was from the underlying rectus tissue superiorly and inferiorly. The peritoneum was identified and entered. Peritoneal incision was stretched. The [place] exis retractor was placed and rolled down. The uterus was palpated to examine lie. A low transverse uterine incision was made. The incision was stretched manually. Bag of water was entered during the process and fluid was brown with meconium. The baby's head was elevated through the incision. It was a tight fit. The forceps blade was placed under the head to help guide the baby out. The baby was delivered and brought up towards her chest to show mom. Baby was dried and stimulated. I waited for 1 minute to clamp the cord. After the umbilical cord was clamped and cut, cord blood was obtained for evaluation. The placenta was removed intact using gentle traction and appeared normal. The uterine outline, tubes and ovaries appeared normal. The uterine incision was closed with running locked sutures of 0 Monocryl suture. A second horizontal imbricating layer was placed with the same suture. Hemostasis was observed. There was a hematoma on the left so a stitch was placed there. Tubes and ovaries appeared normal. She was very tender, especially on the left and extra medication was given. The Everardo retractor was removed. Rectus muscles were examined carefully for b leeding. The fascia was then reapproximated with running sutures of 0 Vicryl. She was very tender here so 1% lidocaine was poured onto the wound and injected. Her umbilcus was also quite tender. This was injected as well. The subcutaneous tissue was brought together with 3.0 Vicryl suture and the skin was closed with 4.0 Vicryl in subcuticular fascia. Wide steri strip was placed over the wound. Bandage was placed. Uterus was expressed. Fundus was firm. Patient was then brought to the PACU in stable condition. Instrument, sponge, and needle counts were correct prior the abdominal closure and at the conclusion of the case. My reference assistant was scrubbed and present during the entire procedure and assisted with visualization, hemostasis, fundal pressure for infant delivery, and closur e. Findings: Tubes, ovaries and uterus all appeared normal. Baby is a boy weight pending. Apgars were good. no support needed. Drains: Ritter catheter to gravity Specimens: none Complications: None; patient tolerated the procedure well. Disposition: back FBP Condition: stable Plan: Routine post op care
[2023-06-25] MEDS ORDERED: LACTATED RINGERS 1,000 ML IV SCH (05:00)
[2023-06-25] MEDS: OXYTOCIN/SODIUM CHLORIDE 500 ML IV PRN (05:02)
[2023-06-25] MEDS: LACTATED RINGERS 400 ML IV ONE (05:02)
--- NOTE | 2023-06-25 05:13 | ANESTHESIA POST OP EVALUATION ---
Anesthesia Post Eval - Post Anesthesia Eval Vitals: Last Vital Signs Temp 36.6 C 06/23/23 14:30 Pulse 81 06/23/23 14:30 Resp 16 06/23/23 14:30 BP 144/78 H 06/23/23 14:30 Pulse Ox O2 Flow Rate CV Function Including HR & BP: Stable Pain Control: Satisfactory Nausea & Vomiting: Negative Mental Status: Baseline Respiratory Status: Airway Patent Hydration Status: Satisfactory Anesthesia Complications: None
[2023-06-25] MEDS: KETOROLAC 30 MG/ML VIAL IVP SCH (10:37)
[2023-06-25] MEDS: oxyCODONE 5 MG TABLET PO PRN (11:47)
[2023-06-25] MEDS: ACETAMINOPHEN 500 MG TABLET PO SCH (12:48)
[2023-06-25] MEDS: DOCUSATE SODIUM 100 MG CAPSULE PO SCH (23:38)
[2023-06-26] MEDS ORDERED: KETOROLAC 30 MG/ML VIAL ONE (00:12)
[2023-06-26 05:35] LABS: HCT - HEMATOCRIT 28.1 % (37.0-47.0); HGB - HEMOGLOBIN 9.2 g/dL (12.0-16.0); MEAN CORPUSCULAR HEMOGLOBIN 30.1 pg (27.0-31.0); MEAN CORPUSCULAR HGB CONC 32.7 g/dL (32.0-36.0); MEAN CORPUSCULAR VOLUME 91.8 fL (81.0-99.0); MEAN PLATELET VOLUME 10.8 fL (7.9-10.8); RED BLOOD COUNT 3.06 10^6/uL (4.20-5.40); RED CELL DISTRIBUTION WIDTH 14.2 % (12.0-15.0); WHITE BLOOD COUNT 10.3 x10^3/uL (4.8-10.8)
[2023-06-26] MEDS: IBUPROFEN 600 MG TABLET PO SCH (06:23)
--- NOTE | 2023-06-26 09:18 | PROVIDER PROGRESS NOTE ---
Subjective - Subjective Subjective: Subjective Patient reports she is doing well. Lochia appropriate. Denies heavy bleeding. Ambulating. Pelvic and abdominal pain well-controlled. Tolerating oral intake. Diet: Regular. Voiding without difficulty. Passing flatus. Denies BM. Patient is bonding with baby in room Breast feeding going well. Denies feeling lightheaded, dizzy or excessively fatigued. Objective General: Alert, oriented, no apparent distress. Cardiovascular: Regular rate. Regular rhythm. Lungs: No increased work of breathing. Abdomen: Uterus firm. Below umbilicus. No guarding or rebound. Extremities: No pain on palpation. No cords palpated. Distal pulses intact. Incision: Clean, dry, and intact. Assessment and Plan day 1. -Routine care -Anticipate discharge tomorrow Status post primary low-transverse section -Routine postoperative care Objective - Vital Signs/Intake & Output Vital Signs: Vital Signs x48h Temp Pulse Resp BP Pulse Ox 06/26/23 06:30 97.2 F L 70 16 119/71 97 Intake & Output: Intake & Output 06/23/23 06/24/23 06/25/23 06/26/23 23:59 23:59 23:59 23:59 Intake Total 2172.583 2029.666 1050 Output Total 550 2500 Balance 1622.583 -075.283 9228 - Lab Results Fish Bones: 06/26/23 05:20 Other Labs: Lab Results x24hrs 06/26/23 Range/Units 05:20 WBC 10.3 (4.8-10.8) x10^3/uL RBC 3.06 L (4.20-5.40) 10^6/uL Hgb 9.2 L (12.0-16.0) g/dL Hct 28.1 L (37.0-47.0) % MCV 91.8 (81.0-99.0) fL MCH 30.1 (27.0-31.0) pg MCHC 32.7 (32.0-36.0) g/dL RDW 14.2 (12.0-15.0) % Plt Count 152 (130-450) 10^3/uL MPV 10.8 (7.9-10.8) fL Sepsis Event Note (H) - Evaluation Possible source of Sepsis: positive: Genitourinary - Sepsis Criteria Sepsis Criteria: Recorded Heart Rate greater than 90 bpm
[2023-06-26] MEDS: SERTRALINE 50 MG TABLET PO SCH (21:12)
[2023-06-27 08:04] VITALS: O2SAT 100
[2023-06-27 10:19] VITALS: BP 101/62
--- NOTE | 2023-06-27 13:29 | Labor Flowsheet ---
Labor Flowsheet Datetime Report Generated by CPN: 06/27/2023 13:29 Datetime: 06/25/2023 06:05 Membranes Ruptured Date/Time: 06/24/2023 10:45 Amniotic Fluid Odor: None Datetime: 06/25/2023 03:25 Antibiotics: Ancef IV (Gm) @ 2 Datetime: 06/25/2023 03:13 Provider Notified (Name): C. Farr, [employer] Datetime: 06/25/2023 03:06 I/O Interventions: Ritter Cath Inserted Datetime: 06/25/2023 02:47 MEDICATIONS Pitocin (milliunits): Discontinued Datetime: 06/25/2023 02:46 MONTEV[place] UNITS (Computed) Contractions in Ten Minutes: 3 IUPC Average Intensity: 90 IUPC Average Resting Tone: 15 [place] Units (mmHg): 225 Datetime: 06/25/2023 02:45 Vaginal Exam Comments: unchanged from 0035 PROCEDURE TIME OUT Procedure Verify: Agreement on Procedure to be Done; Safety Precautions Based on Patient History or Medication Use TEACHING Instructional Method: Verbal; Patient Instructed; Family/Support Person Instructed Plan of Care: C/S Delivery Labor/Induction: Antibiotic Use Pain Management: Epidural; Comfort Measures Datetime: 06/25/2023 02:40 VITAL SIGNS NBP Sys/Sonal/Mean (mmHg): 127 : 90 : 95 Pulse: 118 LaborFlag: Labor Datetime: 06/25/2023 02:39 SpO2 (%): 97 Datetime: 06/25/2023 02:35 Temperature (C): 37.3 Datetime: 06/25/2023 02:30 Pitocin Checklist: No More than 5 Uterine Contractions in 10 Minutes for any 20 Minute Interval; Ut erus Palpates Soft between Contractions Datetime: 06/25/2023 02:22 STAGE 2 Pushing: Urge to Push Datetime: 06/25/2023 02:09 Medication Comments: per provider Datetime: 06/25/2023 02:01 PATIENT CARE IV/Blood Work: IV Bolus Given ml @ 300 Datetime: 06/25/2023 01:56 Patient Care Comments: Amnioinfusion off Datetime: 06/25/2023 01:26 Stage of : Labor Provider Reviewed Strip: No Notification Reason: Status Update; Status; Labor Status; Uterine Activity Datetime: 06/25/2023 01:07 Medications: Pitocin Teaching Comments: Discussed with pt and family reasons for turning pitocin off. COMMUNICATION Communication: RN Reviewed Strip; Report Given to @ L. Spear, RN Datetime: 06/25/2023 01:05 Patient Position/Activity: Right Tilt Datetime: 06/25/2023 00:59 Maternal Comments: Minimal fluids out from amnioinfusion Datetime: 06/25/2023 00:21 Pushing Position: Pushing with Contractions Datetime: 06/25/2023 00:00 Contraction Comments: coupling of UCs noted Datetime: 06/24/2023 23:55 Station: 1 Vaginal Bleeding: Small Datetime: 06/24/2023 23:48 Pain Assessment Comments: pt reports feeling a lot of pressure in LUQ, 4/10 rating Datetime: 06/24/2023 23:24 Analgesics/Sedatives: Tylenol (mg) @ 1000 Datetime: 06/24/2023 23:22 PAIN Pain Scale: 2 Pain Type: Ache Pain Location: Head Datetime: 06/24/2023 22:45 Amnioinfusion: Started Datetime: 06/24/2023 22:21 Communication Comments: Notified provider of the recurrent variable decels, recommendation given to initiate amnioinfusion. Received orders, MD requests to be notified if amnioinfusion does not resolv e the recurrent variables Datetime: 06/24/2023 22:02 Respirations: 19 Datetime: 06/24/2023 20:04 Monitor Interventions for UA: IUPC Inserted VAGINAL EXAM Dilatation (cm): 6.0 Effacement (%): 100 Exam by: Dr. Jones Datetime: 06/24/2023 19:40 Anesthesia Level Check: T10- Umbilicus Datetime: 06/24/2023 19:00 UTERINE ACTIVITY Monitor Mode: External Frequency (min): 4 Quality: Strong Duration (sec): 60-70 Pattern: Normal: <= 5 Contractions in 10 Minutes Resting Tone (Palpate): Relaxed ASSESSMENT A Monitor Mode: Telemetry FHR Baseline Changes: No Baseline Change Variability: Moderate 6-25 bpm Accelerations: None Decelerations: Late Category: Category II Datetime: 06/24/2023 18:45 FHR Baseline Rate : 145 Datetime: 06/24/2023 18:30 Actions for Decelerations: Other Comments: Isolated variable. No intervention required Datetime: 06/24/2023 16:12 Epidural Procedure Other: Pump Started Datetime: 06/24/2023 16:08 Epidural Procedure: Loading Dose Datetime: 06/24/2023 15:54 ANESTHESIA Anesthesia Plans: Epidural Epidural Positioning: Sitting Datetime: 06/24/2023 15:05 Hygiene: Complete Bath Datetime: 06/24/2023 10:46 Membrane Status: Ruptured Membranes Rupture Method: Spontaneous Amniotic Fluid Color: Clear Amniotic Fluid Amount: Copious Datetime: 06/24/2023 05:49 Strip Reviewed by: RNC Spear with Dr Odilon Datetime: 06/24/2023 04:24 Pain Presence: Intermittent Datetime: 06/23/2023 22:18 Vital Sign Comments: oral Datetime: 06/23/2023 21:44 Cervix, Consistency: Soft Cervix, Position: Posterior Datetime: 06/23/2023 19:57 Pain Coping: Talking Through Contractions; Breathing Through Contractions MATERNAL ASSESSMENT Level of Consciousness: Alert DTR's/Clonus: No Clonus Headache: Denies Breath Sounds, Left: Clear and Equal Breath Sounds, Right: Clear and Equal Nausea/Vomiting: Denies RUQ Epigastric Pain: Denies Comfort Measures: Breathing/Relaxation; Family Support Datetime: 06/23/2023 16:29 Cervical Ripening Agents: Cytotec @
--- NOTE | 2023-06-27 23:00 | DISCHARGE SUMMARY ---
"Discharge Summary Admit Date: 06/23/23 Discharge Date: 06/27/23 Discharging Provider: Saritha Jones MD Code Status: Attempt Resuscitation - DIAGNOSES Admission Diagnoses: at 39 weeks. lga baby. admitted for induction Discharge Diagnoses with Status of Each Condition: failed to progress in labor, c section at 9 cm. normal recovery - HPI History of Present Illness: patient admitted for induction as baby is large. - CONSULTS | PROCEDURES Procedures: labor induction. primary low transverse c section - HOSPITAL COURSE Hospital Course: Admitted for induction miso then pitocin. epidural. got to 9 cm. there for over 3 hours with adequate contractions with IUPC. tried to push cervix away but was not successful. c section done without complication. recovery was unremarkable. discharged home on pod # 2. - ALLERGIES Allergies/Adverse Reactions: Allergies Allergy/AdvReac Type Severity Reaction Status Date / Time No Known Drug Allergies Allergy Verified 06/23/23 15:30 - MEDICATIONS Home Medications: Ambulatory Orders Medication Instructions Recorded Confirmed Pnv No.95/Ferrous Fum/Folic AC 1 tab ORAL DAILY 06/23/23 06/23/23 [ Tablet] Sertraline HCl [Zoloft] 50 mg PO ONCE 06/23/23 06/23/23 Acetaminophen [Tylenol] 1,000 mg PO Q8H PRN #30 tab 06/27/23 Docusate Sodium 100Mg Capsule 200 mg PO BID PRN #30 cap 06/27/23 [Colace 100Mg Capsule] Ferrous Sulfate 325 mg PO DAILY #60 tab 06/27/23 Ibuprofen [Motrin] 600 mg PO Q6HR PRN #30 tab 06/27/23 oxyCODONE [Roxicodone] 5 mg PO Q4HR PRN #10 tab 06/27/23 - PHYSICAL EXAM AT DISCHARGE General Appearance: positive: No acute distress Cardiovascular: positive: Regular rate & rhythm Abdomen: positive: Non-tender, No distention, Other (wound healing well. no erythema.) Extremities: positive: Non-tender - LABS Result Diagrams: 06/26/23 05:20 - SEPSIS Possible source of Sepsis: Genitourinary Sepsis Criteria: Recorded Heart Rate greater than 90 bpm - FOLLOW UP Follow Up: 1 wk - TIME SPENT Time Spent in Discharge (Minutes): 20"
== END 2023-06-27 13:10 | disposition home or self-care (01) | DRG 788 ==
LOC: WFO 14:10 → FBP 14:15 → WFO 15:56 → FBP 15:57 → OBSVTOIN 06-24 19:24 → FBP 06-25 08:06
PROVIDERS: ADMIT Obstetrics & Gynecology; ATTEND Obstetrics & Gynecology
PROC: 3E0DXGC Introduction of Other Therapeutic Substance into Mouth and Pharynx, External Approach (ICD-10-PCS; 2023-06-24)
PROC: 10H07YZ Insertion of Other Device into Products of Conception, Via Natural or Artificial Opening (ICD-10-PCS; 2023-06-24)
PROC: 4A1HXCZ Monitoring of Products of Conception, Cardiac Rate, External Approach (ICD-10-PCS; 2023-06-24)
PROC: 10D00Z1 Extraction of Products of Conception, Low, Open Approach (ICD-10-PCS; principal; 2023-06-25 04:00)
DX: O98.52 Other viral diseases complicating childbirth (principal); O76 Abnormality in fetal heart rate and rhythm complicating labor and delivery; Z3A.39 39 weeks gestation of pregnancy; Z37.0 Single live birth; B00.1 Herpesviral vesicular dermatitis; O36.63X0 Maternal care for excessive fetal growth, third trimester, not applicable or unspecified; O99.892 Other specified diseases and conditions complicating childbirth; R00.0 Tachycardia, unspecified; O61.0 Failed medical induction of labor; O62.0 Primary inadequate contractions; Z87.891 Personal history of nicotine dependence
CPT/HCPCS: 36415; 85025; 85027; 86850; 86900; 86901; 86920; A9270; J0131; J2372; J2795; J7120